=== PATIENT | female | born 1985 | race Caucasian/White ===

== ENCOUNTER 2022-01-29 21:46 | Inpatient (IN) | payer OTHER ==
[~2022-01-29] VITALS: Ht 157.5 cm; Wt 108.4 kg
--- NOTE | ~2022-01-29 | OR ---
[facility] [address] [place], [place] [address] Draft DATE OF OPERATION: 01/31/2022 SURGEON: Isaiah Elise DO PROCEDURE: Primary low-transverse . PREOPERATIVE DIAGNOSES: Failure to descend, excess weight gain in , advanced maternal age, 39 weeks gestation, prelabor rupture of membranes. POSTOPERATIVE DIAGNOSES: Failure to descend, excess weight gain in , advanced maternal age, 39 weeks gestation, prelabor rupture of membranes as well as term delivered. COMMUNITY HEALTH REPRESENTATIVE: Roberto Powell M.D. COMPLICATIONS: None. BLOOD LOSS: 500 mL. FINDINGS: Viable term female weighing 7 pounds 11 ounces with Apgars of 8 and 9 at 1 and 5 minutes respectively. Normal-appearing uterus, bilateral tubes and ovaries. ANESTHESIA: Spinal. INDICATION: The patient is a 36-year-old G1, P0, who [facility] with complaint of rupture of membranes at 2100. She was admitted and Pitocin was started for labor augmentation. Starting time of Pitocin was 0130 on 01/30/2022. She made slow progress throughout the day and progressed to complete cervix at 2200 on 01/30/2022. She was encouraged to push with contractions and was noted to have poor maternal expulsive effort complicated by pain management issues. Anesthesia was called and epidural was bolused. Pitocin was discontinued temporarily for a break from oxytocin infusion and once comfortable with her epidural bolus, she resumed pushing. There had been no change PATIENT NAME: KRISS,CORA OPERATIVE REPORT DATE OF : 87 REPORT #: [id number] PHYSICIAN: ISAIAH ELISE DO PCP: NO PRIMARY CARE PHYSICIAN REPORT IS CONFIDENTIAL AND NOT TO BE RELEASED WITHOUT AUTHORIZATION [facility] [address] [place], [place] [address] Draft in station despite numerous pushing positions including left lateral, right lateral hands and knees dorsal lithotomy and when her epidural bolus wore off, she verbalized strong desire to move forward with primary delivery. Risks, benefits, and alternatives were discussed at length with the patient and father of the baby who was present at bedside and they elected to proceed. PROCEDURE IN DETAIL: The patient was taken back to the operating room where she was given 3 g Ancef, 500 mg of azithromycin preoperatively. Spinal anesthesia was placed by NAIL GALVANIZER after removal of epidural catheter. Olivas catheter was replaced. SCDs were positioned and she was prepped and draped in normal sterile fashion. Adequate anesthesia was confirmed. Pfannenstiel incision was made with a scalpel and carried down to the underlying layer of fascia with Bovie cautery, cauterizing perforating vessels as they were encountered in the subcutaneous layer. The fascial incision was extended laterally with Gonzalez scissors. Inferior margin of fascia was grasped and elevated with Lesly clamps. Underlying rectus muscles dissected off bluntly and sharply with Gonzalez scissors, this was released. In a similar fashion, the superior margin was grasped, elevated, underlying rectus muscles dissected off bluntly and sharply with Gonzalez scissors, then released. Peritoneum was entered bluntly and extended laterally with traction. Pablo retractor was placed. Hysterotomy was made with a scalpel in a low-transverse fashion just above the bladder reflection and extended laterally with gentle digital traction superiorly and inferiorly. Infant's head was then easily grasped and elevated from the pelvis and the was delivered easily through the hysterotomy with no nuchal or noted. The baby gave a strong spontaneous cry immediately and cord was doubly clamped and cut. Baby was handed off to waiting nursery team including waiting senior marketing analyst and respiratory therapist. Cord blood was collected for type and Bill. Segment of cord was collected and set aside and placenta was manually extracted. Uterus was cleared of clots and debris and hysterotomy was closed in a two layer fashion, 1st with 0 Monocryl in a running locked manner, second with 0 Monocryl in an imbricating manner. Following 2nd layer of closure, excellent hemostasis was noted. The pelvis was suctioned and irrigated with warm sterile saline and again excellent hemostasis was noted. Uterus, tubes, and ovaries were examined with normal findings as noted above. Perineum was closed with 2-0 Vicryl in a running fashion. Rectus muscle was reapproximated at midline with 0 Vicryl in a simple interrupted fashion x3. Rectus was suctioned and irrigated with warm sterile saline. Perforating vessels were cauterized with Bovie cautery with resulting hemostasis. Fascia was closed with 0 Vicryl in a running fashion, working 1st from the right apex to midline and left apex to midline meeting in the middle. The subcutaneous layer was suctioned and irrigated with warm sterile saline and perforating vessels were cauterized with Bovie cautery as they were encountered. Excellent hemostasis was noted. Subcutaneous layer was closed with 3-0 Vicryl in a running fashion. The skin was closed with skin clips with excellent hemostasis noted. Sponge and instrument counts were correct x2. The uterus was Crede'd with minimal PATIENT NAME: CORA MONTERROSO OPERATIVE REPORT DATE OF : [birth year] REPORT #: [id number] PHYSICIAN: ISAIAH ELISE DO PCP: NO PRIMARY CARE PHYSICIAN REPORT IS CONFIDENTIAL AND NOT TO BE RELEASED WITHOUT AUTHORIZATION [address] [place], [place] [address] Draft bleeding and the patient was taken to recovery in stable and satisfactory condition to recover with baby skin to skin. DO JAQUELIN Weathers/LENNOXL /[id number] Copies: ~ PATIENT NAME: CORA MONTERROSO OPERATIVE REPORT DATE OF : 87 REPORT #: [id number] PHYSICIAN: ISAIAH ELISE DO PCP: NO PRIMARY CARE PHYSICIAN REPORT IS CONFIDENTIAL AND NOT TO BE RELEASED WITHOUT AUTHORIZATION
[2022-01-29] MEDS ORDERED: PRENATABS RX T1 EACH PO (23:12)
--- NOTE | 2022-01-30 10:11 | PR ---
[facility] [address] [place], [place] [address] Signed Progress Notes IP Datetime Report Generated by CPN: 01/30/2022 10:11 PROGRESS NOTES: [id number] Impression: Normal Progression of Labor; Reassuring Heart Rate Procedures: Intrauterine Pressure Catheter; Sterile Vag Exam Plan: Continue Present Management; Augmentation Informed Consent Obtain: Vaginal Delivery VITAL SIGNS: [id number] Vital Signs: Reviewed; Within Normal Limits EXAM: [id number] Dilatation: 4.5 Effacement: 90 Station: -3 Contractions: q 2-3 min MEMBRANES: [id number] Amniotic Fluid Color: Clear ROM Note: Pt is here for evaluation of LOF. Nitrazine positive, LOF w/ VE. Pt reports ROM time tonight at 2115, and was clear. Comments: Pt seen and examined. Comfortable w/ epidural. Cxs spaced some on pitocin. Discussed IUPC for more accurate monitoring of contractions / augmentation w/ pitocin. All questions answered. FETUS A: [id number] FHR Baseline: 140 Variability: Moderate 6-25bpm Accelerations: 15X15 Decelerations: None FHR Category: Category I Presentation: Vertex Comments on Fetus A: No evidence of metabolic acidosis FETUS B: [id number] Signing Physician: Ted Cantor DO Copies: ~ *Electronically Signed* 01/30/22 1011 TED CANTOR DO PATIENT NAME: CORA MONTERROSO PROGRESS NOTE DATE OF : 87 PHYSICIAN: TED CANTOR DO RPT #: [id number] REPORT IS CONFIDENTIAL AND NOT TO BE RELEASED WITHOUT AUTHORIZATION
--- NOTE | 2022-01-30 12:46 | PR ---
[facility] [address] [place], [place] [address] Signed Progress Notes IP Datetime Report Generated by CPN: 01/30/2022 12:46 PROGRESS NOTES: [id number] Impression: Normal Progression of Labor; Reassuring Heart Rate Procedures: Sterile Vag Exam Plan: Continue Present Management Informed Consent Obtain: Vaginal Delivery VITAL SIGNS: [id number] Vital Signs: Reviewed; Within Normal Limits EXAM: [id number] Dilatation: 6.0 Effacement: 90 Station: -1 Contractions: q 2-3 min MEMBRANES: [id number] Amniotic Fluid Color: Clear ROM Note: Pt is here for evaluation of LOF. Nitrazine positive, LOF w/ VE. Pt reports ROM time tonight at 2115, and was clear. Comments: Pt seen and examined. Doing well. Comfortable w/ epidural but feeling more pressure in her pelvis. No questions or concerns. Continue pitocin augmentation FETUS A: [id number] FHR Baseline: 140 Variability: Moderate 6-25bpm Accelerations: 15X15 Decelerations: None FHR Category: Category I Presentation: Vertex Comments on Fetus A: No evidence of metabolic acidosis FETUS B: [id number] Signing Physician: Ted Cantor DO Copies: ~ *Electronically Signed* 01/30/22 1246 TED CANTOR DO PATIENT NAME: CORA MONTERROSO PROGRESS NOTE DATE OF : 87 PHYSICIAN: TED CANTOR DO RPT #: [id number] REPORT IS CONFIDENTIAL AND NOT TO BE RELEASED WITHOUT AUTHORIZATION
--- NOTE | 2022-01-30 17:33 | PR ---
[facility] [address] [place], [place] [address] Signed Progress Notes IP Datetime Report Generated by CPN: 01/30/2022 17:33 PROGRESS NOTES: [id number] Impression: Normal Progression of Labor; Reassuring Heart Rate Procedures: Sterile Vag Exam Plan: Continue Present Management; Anticipate Vaginal Delivery Informed Consent Obtain: Vaginal Delivery VITAL SIGNS: [id number] Vital Signs: Reviewed; Within Normal Limits EXAM: [id number] Dilatation: 9.0 Effacement: 100 Station: 0 Contractions: q 2-3 min MEMBRANES: [id number] Amniotic Fluid Color: Clear ROM Note: Pt is here for evaluation of LOF. Nitrazine positive, LOF w/ VE. Pt reports ROM time tonight at 2115, and was clear. Comments: Pt seen and evaluated. Doing well. Comfortable w/ contractions. C/O some pelvic pressure but no urge to push. On exam, bloody show w/ small amount of blood clot noted. Minimal variability noted w/ accel w/ scalp stim. Anticipate . Pt evaluted w/ Dr. Elise at bedside and care handed off to Dr. Elise. All questions answered. FETUS A: [id number] FHR Baseline: 140 Variability: Moderate 6-25bpm Accelerations: 15X15 Decelerations: None FHR Category: Category I Presentation: Vertex Comments on Fetus A: No evidence of metabolic acidosis FETUS B: [id number] Signing Physician: Ted Cantor DO Copies: ~ *Electronically Signed* 01/30/22 4734 TED CANTOR DO PATIENT NAME: KRISSCORA QUACH PROGRESS NOTE DATE OF : 87 PHYSICIAN: TED CANTOR DO RPT #: [id number] REPORT IS CONFIDENTIAL AND NOT TO BE RELEASED WITHOUT AUTHORIZATION
--- NOTE | 2022-01-30 22:11 | PR ---
[facility] [address] [place], [place] [address] Signed Progress Notes IP Datetime Report Generated by CPN: 01/30/2022 22:11 PROGRESS NOTES: [id number] Impression: Reassuring Heart Rate Procedures: Sterile Vag Exam Plan: Anticipate Vaginal Delivery Informed Consent Obtain: Vaginal Delivery VITAL SIGNS: [id number] Vital Signs: Reviewed; Within Normal Limits EXAM: [id number] Dilatation: 10.0 Effacement: 100 Station: 0 Contractions: q 2-3 min MEMBRANES: [id number] Membranes Status: Ruptured Amniotic Fluid Color: Clear ROM Note: Pt is here for evaluation of LOF. Nitrazine positive, LOF w/ VE. Pt reports ROM time tonight at 2115, and was clear. Comments: Pt encouraged to push with contractions, with plan to try frequent position changes. Anticipate FETUS A: [id number] FHR Baseline: 140 Variability: Moderate 6-25bpm Accelerations: 15X15 Decelerations: None FHR Category: Category I Presentation: Vertex Comments on Fetus A: No evidence of metabolic acidosis FETUS B: [id number] Signing Physician: Isaiah Elise DO Copies: ~ *Electronically Signed* 01/30/222210 ISAIAH ELISE DO PATIENT NAME: CORA MONTERROSO PROGRESS NOTE DATE OF : 87 PHYSICIAN: ISAIAH ELISE #: [id number] REPORT IS CONFIDENTIAL AND NOT TO BE RELEASED WITHOUT AUTHORIZATION
--- NOTE | 2022-01-30 23:26 | PR ---
[facility] [address] [place], [place] [address] Signed Progress Notes IP Datetime Report Generated by CPN: 01/30/2022 23:26 PROGRESS NOTES: [id number] Impression: Reassuring Heart Rate Procedures: Sterile Vag Exam Plan: Anesthesia Consult Informed Consent Obtain: Vaginal Delivery VITAL SIGNS: [id number] Vital Signs: Reviewed; Within Normal Limits EXAM: [id number] Dilatation: 10.0 Effacement: 100 Station: 1 Contractions: q 2-3 min MEMBRANES: [id number] Membranes Status: Ruptured Amniotic Fluid Color: Clear ROM Note: Pt is here for evaluation of LOF. Nitrazine positive, LOF w/ VE. Pt reports ROM time tonight at 2115, and was clear. Comments: Pt very painful with and between contractions -pitocin discontinued -epidural rebolused per anesthesia Continue pushing with contractions FETUS A: [id number] FHR Baseline: 140 Variability: Moderate 6-25bpm Accelerations: 15X15 Decelerations: None FHR Category: Category I Presentation: Vertex Comments on Fetus A: No evidence of metabolic acidosis FETUS B: [id number] Signing Physician: Isaiah Elise DO Copies: *Electronically Signed* 01/30/22 5520 ISAIAH ELISE DO PATIENT NAME: CORA MONTERROSO PROGRESS NOTE DATE OF : 87 PHYSICIAN: ISAIAH ELISE DO RPT #: [id number] REPORT IS CONFIDENTIAL AND NOT TO BE RELEASED WITHOUT AUTHORIZATION [address] [place], [place] [address] Signed ~ *Electronically Signed* 01/30/22 232 ISAIAH ELISE DO PATIENT NAME: CORA MONTERROSO PROGRESS NOTE DATE OF : 87 PHYSICIAN: ISAIAH ELISE DO RPT #: [id number] REPORT IS CONFIDENTIAL AND NOT TO BE RELEASED WITHOUT AUTHORIZATION
--- NOTE | 2022-01-31 01:12 | PR ---
[facility] [address] [place], [place] [address] Signed Progress Notes IP Datetime Report Generated by ANT: 01/31/2022 01:12 PROGRESS NOTES: [id number] Impression: Arrest of Dilatation/Descent; Reassuring Heart Rate Procedures: Sterile Vag Exam Plan: Deliver- Section Informed Consent Obtain: Section Delivery VITAL SIGNS: [id number] Vital Signs: Reviewed; Within Normal Limits EXAM: [id number] Dilatation: 10.0 Effacement: 100 Station: 1 Contractions: q 2-3 min MEMBRANES: [id number] Membranes Status: Ruptured Amniotic Fluid Color: Clear ROM Note: Pt is here for evaluation of LOF. Nitrazine positive, LOF w/ VE. Pt reports ROM time tonight at 2115, and was clear. Comments: Pt received initial pain relief from epidural bolus, but now feeling like "it's doing nothing". Pitocin discontinued for break, resumed. Patient no longer tolerating contractions even with decreased intensity and frequency. No change in station on recheck, patient requesting delivery. Risks, benefits, alternatives discussed with pt and FOB including risks of bleeding, infection, damage to surrounding structures, need for repeat for future pregnancies. Questions answered to the best of my ability to patient's apparent satisfaction and she elected to proceed. [id number], Azithromycin 500mg IV ordered for preop prophylaxis FETUS A: [id number] FHR Baseline: 140 Variability: Moderate 6-25bpm Accelerations: 15X15 Decelerations: None FHR Category: Category I Presentation: Vertex Comments on Fetus A: No evidence of metabolic acidosis FETUS B: [id number] *Electronically Signed* 01/31/22 011 ISAIAH ELISE DO PATIENT NAME: CORA MONTERROSO PROGRESS NOTE DATE OF : [birth year] PHYSICIAN: ISAIAH ELISE DO RPT #: [id number] REPORT IS CONFIDENTIAL AND NOT TO BE RELEASED WITHOUT AUTHORIZATION [address] [place], [place] [address] Signed Signing Physician: Isaiah Elise DO Copies: ~ *Electronically Signed* 01/31/22111 ISAIAH ELISE DO PATIENT NAME: CORA MONTERROSO PROGRESS NOTE DATE OF : 87 PHYSICIAN: ISAIAH ELISE DO RPT #: [id number] REPORT IS CONFIDENTIAL AND NOT TO BE RELEASED WITHOUT AUTHORIZATION
--- NOTE | 2022-01-31 02:56 | NUR ---
01/31/22 0256 ThomasNati L 0245: PT TO [facility] RM 102 AWAKE AND ALERT, RESP EVEN AND UNLABORED. THIS RN, ALEKS GOLDSTEIN AND FABIANA RN IN ROOM ON ARRIVAL. SPOUSE AT BEDSIDE. 0250: PT HOB RAISED TO APPROX 35 DEGREES, PT DENIES ANY DIZZINESS OR NAUSEA WITH POSITION CHANGE. INFANT LATCHED TO RIGHT BREAST AT THIS TIME.
--- NOTE | 2022-02-01 07:35 | PR ---
[facility] [address] [facility] [place], [place] [address] Signed PP Progress Notes Datetime Report Generated by CPN: 02/01/2022 07:35 SUBJECTIVE: [id number] Pain: Within Normal Limits Nausea/Vomiting: Denies Flatus: Yes Bowel Movement: No Vital Signs: [id number] Vital Signs: Reviewed; Within Normal Limits EXAM: Ongoing Cardiovascular: Normal Respiratory: Normal Abdomen/Uterus: Normal Lochia: Normal Breasts: Normal Extremities: Normal Incision: Normal Progress: Normal Exam Comments: NAD, sitting up in bed RRR No dyspnea or retractions Abd SNTND, no strikethrough on dressing, FFBU Ext: 1+ pitting BLLE, Neg Mack's BL IMPRESSION/PLAN/PROCEDURES: [id number] Impression: Normal Progression Plan: Continue Present Management Progress Notes: Pt is a 36 yo POD#1 s/p PLTCS for failure to descend/ maternal request -Pt seen and evaluated, as above -Normal postop/ progression. VSS, Signing Physician: Isaiah Elise DO Copies: ~ *Electronically Signed* 02/01/22 0735 ISAIAH ELISE DO PATIENT NAME: CORA MONTERROSO PROGRESS NOTE DATE OF : 87 PHYSICIAN: ISAIAH ELISE DO RPT #: [id number] REPORT IS CONFIDENTIAL AND NOT TO BE RELEASED WITHOUT AUTHORIZATION
--- NOTE | 2022-02-01 07:39 | PR ---
[facility] [address] [place], [place] [address] Signed PP Progress Notes Datetime Report Generated by CPN: 02/01/2022 07:39 SUBJECTIVE: [id number] Pain: Within Normal Limits Nausea/Vomiting: Denies Flatus: Yes Bowel Movement: No Vital Signs: [id number] Vital Signs: Reviewed; Within Normal Limits EXAM: Ongoing Cardiovascular: Normal Respiratory: Normal Abdomen/Uterus: Normal Lochia: Normal Breasts: Normal Extremities: Normal Incision: Normal Progress: Normal Exam Comments: NAD, sitting up in bed RRR No dyspnea or retractions Abd SNTND, no strikethrough on dressing, FFBU Ext: 1+ pitting BLLE, Neg Mack's BL IMPRESSION/PLAN/PROCEDURES: [id number] Impression: Normal Progression Plan: Continue Present Management Progress Notes: Addendum, see prior note: POD#1 s/p PLTCS -Progressing well postop/ -VSS, ambulating without assistance, voiding, tolerating regular diet, +flatus, no BM. No nausea/ vomiting. Pain well-controlled with toradol. Lochia light. baby without difficulty. Anticipate DC to home tomorrow. -Ok to remove dressing in shower, discussed incision care Signing Physician: Isaiah Elise DO Copies: *Electronically Signed* 02/01/22 0739 ISAIAH ELISE DO PATIENT NAME: CORA MONTERROSO PROGRESS NOTE DATE OF : [birth year] PHYSICIAN: ISAIAH ELISE DO RPT #: [id number] REPORT IS CONFIDENTIAL AND NOT TO BE RELEASED WITHOUT AUTHORIZATION [facility] [address] [place] [address] Signed ~ *Electronically Signed* 02/01/22 0739 ISAIAH ELISE DO PATIENT NAME: CORA MONTERROSO PROGRESS NOTE DATE OF : [birth year] PHYSICIAN: ISAIAH ELISE DO RPT #: [id number] REPORT IS CONFIDENTIAL AND NOT TO BE RELEASED WITHOUT AUTHORIZATION
--- NOTE | 2022-02-02 07:23 | PR ---
[facility] [address] [facility] [place], [place] [address] Signed PP Progress Notes Datetime Report Generated by CPN: 02/02/2022 07:23 SUBJECTIVE: [id number] Pain: Within Normal Limits Nausea/Vomiting: Denies Flatus: Yes Bowel Movement: Yes Vital Signs: [id number] Vital Signs: Reviewed EXAM: Ongoing Cardiovascular: Normal Respiratory: Normal Abdomen/Uterus: Normal Lochia: Normal Vulva/Perineum: Not Done Breasts: Normal CVA Tenderness: Normal Extremities: Normal Incision: Normal Progress: Normal Exam Comments: Fundus firm U-[address] IMPRESSION/PLAN/PROCEDURES: [id number] Impression: Normal Progression Plan: Discharge Progress Notes: Pt seen and examined. Doing well. Ambulating, voiding, and tolerating full diet. Pain and lochia minimal. well. No fevers/chills. No other concerns. Desires d/c home today. Reviewed d/c instructions in detail. F/U tomorrow in office for staple removal. Undecided on contraception. Signing Physician: Ted Cantor DO Copies: ~ *Electronically Signed* 02/02/22722 TED CANTOR DO PATIENT NAME: CORA MONTERROSO PROGRESS NOTE DATE OF : 87 PHYSICIAN: TED CANTOR DO RPT #: [id number] REPORT IS CONFIDENTIAL AND NOT TO BE RELEASED WITHOUT AUTHORIZATION
== END 2022-02-02 12:15 | disposition home or self-care (01) | DRG 788 ==
LOC: FBC 21:46
PROVIDERS: ADMIT Obstetrics & Gynecology; ATTEND Obstetrics & Gynecology
PROC: 10H07YZ Insertion of Other Device into Products of Conception, Via Natural or Artificial Opening (ICD-10-PCS; 2022-01-31)
PROC: 10D00Z1 Extraction of Products of Conception, Low, Open Approach (ICD-10-PCS; principal; 2022-01-31 01:46)
DX: O42.02 Full-term premature rupture of membranes, onset of labor within 24 hours of rupture (principal); O26.03 Excessive weight gain in pregnancy, third trimester; Z3A.39 39 weeks gestation of pregnancy; Z37.0 Single live birth; O62.2 Other uterine inertia; O99.214 Obesity complicating childbirth; O99.824 Streptococcus B carrier state complicating childbirth; Z79.899 Other long term (current) drug therapy; Z90.49 Acquired absence of other specified parts of digestive tract; Z90.89 Acquired absence of other organs
CPT/HCPCS: 01960; 01961; 36415; 85027; 86850; 86900; 86901; A9270; J0456; J0690; J1650; J1885; J2001; J2274; J2405; J2540; J2590; J2795; J7060; J7121; U0003